=== PATIENT | male | born 1955 | race Caucasian/White ===

== ENCOUNTER → 2019-12-19 06:34 | Outpatient (CLI) | payer MEDICARE, BC, SELFPAY ==
[2019-12-11 10:03] VITALS: BMI 33.6
--- NOTE | 2019-12-19 06:35 | MRI_ITS ---
STUDY: MRI CERVICAL SPINE WITHOUT CONTRAST REASON FOR EXAM: Male, 64 years old. radiculopathy, L NECK PAIN INTO SHOULDER X 1 MONTH TECHNIQUE: Standardized fat and water weighted pulse sequences were obtained in the sagittal and axial planes. COMPARISON: 12/05/2012 FINDINGS: Cervical lordosis maintained. No significant scoliosis. No spondylolisthesis. No abnormal cord signal. Symmetric vascular flow voids. No acute soft tissue process. Normal thyroid. Normal paraspinal muscles. Tiny perineural cysts. No acute fracture line. No acute dislocation. No acute cortical destruction. Normal foramen magnum and brainstem-cervical cord junction. Normal craniovertebral junction. Normal anterior atlantoaxial articulation. Normal odontoid process. C2-3: Normal endplates. Normal disc height, signal and morphology. Normal central canal and intervertebral neural foramina. C3-4: Normal endplates. Mild disc desiccation. Normal central canal. Severe right neural foraminal narrowing. Facet joint arthrosis. C4-5: Normal endplates. Mild disc desiccation. Normal central canal. Moderate left neural foraminal narrowing. Mild right neural foraminal narrowing. Facet joint arthrosis. C5-6: Normal endplates. Mild disc desiccation. Normal central canal and intervertebral neural foramina. C6-7: Normal endplates. Disc bulge, left foraminal protrusion, without central canal narrowing. Severe left neural foraminal narrowing (secondary to protrusion). Normal right neural foramina. C7-T1: Normal endplates. Bilobed disc bulge. Normal central canal. Normal neural foramina. MRI/Spine Cervical (Routine) IMPRESSION: No abnormal cord signal Multilevel intervertebral disc disease without central canal narrowing Multilevel neural foraminal narrowing most severe at the C3-4, C4-5 and C6-7 levels Mild multilevel facet joint arthrosis Electronically Signed: Dar Jj DO at 13:30 EDT Tel , Service support ,
== END ==
PROVIDERS: PCP Student in an Organized Health Care Education/Training Program; Referring Provider Orthopaedic Surgery; Visit Provider Orthopaedic Surgery
DX: M54.9 Dorsalgia, unspecified (principal)
CPT/HCPCS: 72141

== ENCOUNTER 2020-01-09 11:51 | Inpatient (IN) | payer MEDICARE, BC, SELFPAY ==
[2019-12-23 09:36] VITALS: BMI 33.6
--- NOTE | 2019-12-23 10:57 | HP_ITS ---
Intake Intake Visit Reasons: Neck pain Accompanied by: Self Is patient in pain?: Yes Pain scale (1-10): 5 Allergies No Known Allergies Allergy (Unverified 12/11/19 10:11) [facility] Medical History (Updated 12/11/19 @ 10:06 by Suzan Benjamin) Hodgkins disease (Acute) Surgical History (Updated 12/11/19 @ 10:06 by Suzan Benjamin) History of cholecystectomy (Acute) Social History (Updated 12/23/19 @ 10:[address] 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 Alexander Byrne DO 12/23/19 0935. ABIMAEL MCCAULEY is a 64 year old M here today for review of his recent MRI. MRI was completed 12/19/2019. Abimael returns for review of his MRI scan of his cervical spine. The pain in the left arm has continued down a classic C7 dermatome. He states that when the pain is bad it is 0 on a 0-to-10 scale it is a 10 1 is good it still is 5 or 6. 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 It is not as bad when he installs gutt Examination is unchanged she has a very positive Spurling's to the left side causes pain down the left arm. He has mild weakness of the triceps on the left as compared to the right. His triceps reflex is still absent on the left side. He has no long tract signs. Clonus is absent Babinski's are downgoing. I reviewed the MRI scan the demonstrates that he has a disc herniation at C6-7 on the left side consistent with his symptoms. I discussed the surgery at length with him how it would be done what to expect etc. and answered all his questions. We will schedule him for anterior cervical fusion at C6-7 with attention to the herniation on the left side. ROS [facility] Reports system reviewed and no additional complaints, except as docu, Reports joint pain Assessment & Plan 1. Neck pain M54.2 Coding Level of Care Code Off vis,est,level 3 Diagnoses Neck pain M54.2 Time Spent (min) 12/23/19 1057 <Electronically signed by Alexander Byrne DO> Date _ Alexander Byrne DO No change in H&P
[2020-01-01 08:38] VITALS: BMI 33.6
--- NOTE | 2020-01-01 10:29 | EKG12_ITS ---
Test Reason : PRE OP Blood Pressure : / mmHG Vent. Rate : 063 BPM Atrial Rate : 063 BPM P-R Int : 156 ms QRS Dur : 090 ms QT Int : 404 ms P-R-T Axes : 051 -29 032 degrees QTc Int : 413 ms Normal sinus rhythm Normal ECG Confirmed by MARIANO OLIVAREZ, EDWINA ([id number]), online editor JEAN CLAUDE BELCHER ([id number]) on 01/02/2020 1:52:53 PM Referred By: Alexander Byrne Confirmed By:ARIEL QUINTANA MD
[2020-01-01 11:09] LABS: Absolute Lymphocyte Count 1.28 X10^3/uL (0.83-4.51); Basophil# 0.03 X10^3/uL; Basophil% 0.6 % (0-1); Eosinophil# 0.12 X10^3/uL; Eosinophils% 2.4 % (0-5); Hematocrit 44.9 % (40-54); Hemoglobin 14.8 g/dL (13.0-16.5); Lymphocyte # 1.28 X10^3/ul (4.0); Lymphocyte % 25.9 % (19-41); Mean Corpuscular Hgb 30.3 pg (27.0-32.0); Mean Platelet Vol. 11.1 fl (6.2-12.0); Monocyte# 0.49 X10^3/uL; Monocyte% 9.9 % (0-10); NRBC Flagged by Analyzer 0 % (0-5); Neutrophil # 3.02 X10^3/uL (2.7-7.7); Platelet Count 200 K/mm3 (150-450); RBC Distribution Width CV 13.7 % (11.6-14.6); RBC Distribution Width SD 46.4 fl (35.1-43.9); Red Blood Count 4.88 M/mm3 (4.6-6.2)
[2020-01-01 11:39] LABS: Anion Gap 3 (5-15); BUN 19 mg/dL (7-18); BUN/Creat Ratio 21.2 RATIO (10-20); Calcium,Total 8.9 mg/dL (8.5-10.1); Chloride 108 mmol/L (98-107); EST Glomerular Filtration Rate 90 mL/min (>60); Est Glom Filt Rate - Afr Amer 109 mL/min (>60); Glucose 92 mg/dL (74-106); Sodium Level 138 mmol/L (136-145)
[2020-01-01 12:09] LABS: HIV - WCH Non-Reactive (Nonreactive)
[2020-01-02 05:07] LABS: HEPATITIS B SURFACE AG Negative (Negative); Hepatitis A AB, Total Negative (Negative); Hepatitis A IgM Antibody Negative (Negative); Hepatitis B Core AB IgM Negative (Negative); Hepatitis B Core Ab Total Negative (Negative); Hepatitis C Ab <0.1 s/co ratio (0.0-0.9)
[2020-01-02 10:32] LABS: Hep B Surface Antibodies Non Reactive (.)
[2020-01-02 13:00] LABS: Magnesium 2.2 mg/dL (1.6-2.6)
[2020-01-09] VITALS (13 sets, daily range): BP systolic 144–177; BP diastolic 81–112; PULSE 67–86; RESP 16–18; TEMP 36.1–36.7; O2SAT 95–100; BMI 33.8
[2020-01-09] MEDS: Acetaminophen 500 MG Tablet 1000 MG PO ×2 (06:04)
[2020-01-09] MEDS: Lactated Ringers 1,000 ML 100 ML IV ×5 (06:45→18:00)
[2020-01-09 07:00] LABS: Bedside Glucose 110 mg/dL (70-110)
--- NOTE | 2020-01-09 07:30 | DISC_PTH ---
PATIENT: ABIMAEL MCCAULEY LOC: MS3 U#:[id number] AGE/SX: 64/M ROOM: IL313 RE01/09/[address]: Dr. Alexander Byrne DO : 1955 BED: 1 DIS: 01/10/2020 SPEC #: [id number] RECD: 01/09/20 12:27 STATUS: TRENT RENavid #: [id number] LAITH: 01/09/20 07:[address]: Alexander Byrne DEPT: SURGICAL PATHOLOGY RECD BY: Magdiel Zuñiga ENTERED: 01/09/20 12:37 SP TYPE: DISC OTHR DR: MD Dr. Klaus Crabtree DO Tissues: Intervertebral disc, NOS Procedures: Surgery Specimen Level III HEADER OPERATION: Anterior cervical fusion C6-7 PRE-OP DIAGNOSIS: Herniated disc C6-7 TISSUE SUBMITTED: Cervical disc C6-7 MICROSCOPIC DIAGNOSIS Cervical disc, C6-7: Fragments of fibrocartilaginous tissue with focal degenerative changes. MARGARETTE:marlee 01/10/20 MICROSCOPIC DESCRIPTION Slides are reviewed. GROSS DESCRIPTION Received in fixative is one container labeled with the patient's name and designated cervical disc C6-7. The specimen consists of multiple irregular fragments of firm, pink-vuong soft tissue that in aggregate measure 5 x 4 x 0.2 cm. The specimen is totally submitted in two cassettes. / AM:marlee 01/09/20 TC:5 CPT: 60233
[2020-01-09] MEDS: Cefazolin 2 GM in 0.9% Normal Saline 100 ML IV (08:00)
[2020-01-09] MEDS: Heparin 10,000 UNITS/10 ML Vial 10000 UNITS (08:00)
--- NOTE | 2020-01-09 08:03 | RAD_ITS ---
STUDY: X-RAY - CERVICAL SPINE REASON FOR EXAM: Male, 64 years old. Three images taken during cervical fusion. One at start, one in the middle, and one at the end c6-7 TECHNIQUE: 3 view(s) of the cervical spine were obtained. COMPARISON: None FINDINGS: Normal anterior atlantoaxial articulation. Normal odontoid process. There is anterior fusion at C6-7 in good alignment. Normal cervical lordosis. Normal vertebral bodies and endplates. The soft tissue structures are unremarkable. RAD/Spine 1 View Any Level IMPRESSION: There is anterior fusion at C6-7 in good alignment. Electronically Signed: Marty Romero, at 12:41 EDT Tel , Service support ,
[2020-01-09] MEDS: THROMBIN (RECOMBINANT) 20,000 UNIT VIAL 20000 UNIT TOPICAL (10:02)
--- NOTE | 2020-01-09 12:01 | OP.PCM_ITS ---
Report of Operation Date of Procedure: 01/09/20 Description of Surgical Findings:: This is operative summary on Myke Skaggs patient was taken to the OR where he was placed in the supine position on the operating table was then placed under general endotracheal anesthesia a bolster was placed between the shoulder blades Suarez was inserted. Neuro monitoring instrumentation and control technician then hooked the patient up to his system. A preoperative x-ray was taken with a needle marker taped to the side of the neck to know her to start the incision. I marked the midline of the neck with a small laceration using the end of an 18-gauge needle which would be the starting point for his incision. The neck and the right iliac crest was th en prepped and draped in standard fashion. Then made a transverse incision in line with longer's lines starting in the midline and moving to the right sternocleidomastoid muscle. Cutaneous tissues were incised the length of the skin incision. I then undermined the subcutaneous tissues off of the platysma in both cephalad and caudad direction. The platysma was then split longitudinally down the center oozing blunt cautery and mechanical cutting. Was done I then had to expose the fascial planes first we exploited the precervical fascia in an up-and-down fashion then the pretracheal fascia in this fashion I was able to retract the midline structures that is a trachea and esophagus to the left the carotid sheath to the right away down to the precervical fascia. The cervical fascia was then opened over the disc space thought to be C6-7. The anterior disc space was exposed a spinal needle was put in place and an intraoperative x-ray was taken to confirm that we were indeed at the 6 C6-7 level. This I then cauterized the longus coli muscles on either side off of its medial edges and elevated them gently off of the disc space and the vertebra on each side retractors were then put in place to hold it then cauterized the ostium off of the bottom of C6 and the top of C7. The self-retaining retractors were then in place the coli muscles giving us reasonable exposure. Then cut the anterior annulus with a 15 blade removed it with pituitary rongeurs. We further removed more disc from within the disc space with pituitary rongeurs all the way back to the posterior part of the interspace. Vertebral body distractor was then put on the right side to give open the space. A candi bur 4 mm in diameter I was able to burn down the uncinate process with the bur. We slowly went deeper followed by instillation of saline in between her ring. Opened up the space and the free fragment of disc was then removed using a micropituitary rongeurs. Nerve hook was also used for the same purpose. This opened the foramina this was checked with a large nerve hook was found to be completely free. Used the micro-curettes to remove the cartilage off both endplates once this was done thorough irrigation was carried out as it was every 10 to 15 minutes in the course of the case. Started with our trials at first we started with a 6 mm trial which was too loose we used a six 7 mm trial and finally an 8 mm trial was found to be a good fit for this space. Use the larger of the 2 sizes were 16-1/2 x 14-1/2. And 8 mm in height. In between this we had already prepped the right crest I then made a tiny incision directly over the anterior iliac spine used a Jamshidi needle down into between the tables 60 cc of bone marrow aspirate were obtained. Handed off to the instrumentation and control technician in the room for separation and concentration of the patient's stem cells. C disc space was completely prepared then used a 8 mm broach repeatedly to broach the endplates and make them bleed thorough irrigation was again carried out the implant was opened it was then filled with 1G allograft bone that was processed to act as a sponge once it was filled it was soaked in the patient's own stem cells was then tamped into place with anesthesia pulling on the neck. Was found to be an excellent fit and used a 24 mm plate I did have to bend it slightly once centered we then put a locking pin and on 1 of them I then placed using awl to punch a hole in the next 1 followed by the insertion of a 14 mm screw through 4.0 diameter screws then done at all 4 points after removing the pin mentioned and the screw was also put there. This went through the plate into the locking mechanism. Amnionic membrane was then placed over the plate to prevent adhesions to the esophagus in the future. A 1/4 inch Tyrone drain was left in place I closed the platysma running fashion with 5-0 Vicryl followed by closure of the subcutaneous tissues with 5-0 Vicryl interrupted fashion no need for outside stitches of these came together well. Sterile dressings were then applied patient was then recovered in the OR to his hospital bed and taken to recovery in satisfactory condition.
--- NOTE | 2020-01-09 14:49 | PCM.PROGNOTE ---
Subjective: Patient seen and examined. Resting comfortably in bed. Status post anterior cervical fusion of C6-C7. Reports history of Hodgkin's lymphoma 30 years ago. Denies other medical history. - Physical Exam Vitals/I&O's: Vital Signs Temp Pulse Resp BP Pulse Ox 97.4 F L 79 16 161/84 H 98 01/09/20 14:00 01/09/20 14:00 01/09/20 14:00 01/09/20 14:00 01/09/20 14:00 Oxygen Flow Rate (L/min) 6 Oxygen Delivery Method Room Air Weight: 249 lb 9.012 oz Body Mass Index (BMI) 33.8 Intake and Output for Last 24 Hours 01/07/20 01/08/20 01/09/20 23:59 23:59 23:59 Intake Total 2462 / 2462 Output Total 750 / 750 Balance 1712 / 1712 General: Alert, Oriented x3, Cooperative HEENT: Atraumatic, PERRLA, EOMI, Normocephalic, - - Neck brace in place Neck: Supple, No JVD, Negative Carotid Bruits Lungs: Clear to auscultation, Normal air movement Cardiovascular: Regular rate, No murmurs Abdomen: Bowel Sounds Present, Soft, Non Tender Extremities: No edema, Capillary Refill Less than 3 Seconds Skin: No rashes, No breakdown Musculoskeletal: No Tenderness to Palpation of Joints or Extremities Neurological: Cranial nerves II-XII grossly intact, Neuro grossly intact Psych/Mental Status: Normal Affect, Appropriate Laboratory Results 01/09/20 06:21: POC Glucose 110 Current Medications Famotidine (Pepcid) 20 mg PO BID [facility] Lactated Ringer's () 1,000 mls @ 100 mls/hr IV .Q10H [facility] Last Admin: 01/09/20 14:16 Dose: 100 mls/hr Documented by: Cefazolin Sodium () 1 gm in 50 mls @ 100 mls/hr IV Q8H [facility] Sodium Chloride () 250 mls @ 15 mls/hr IV .[id number] PRN PRN Reason: Saline Flush Sodium Chloride () 250 mls @ 15 mls/hr IV .[id number] PRN PRN Reason: Additional IVPB Infusion Insulin Human Lispro (Humalog Aneudy (Bkc)) 1 - 6 unit SC Q4H PRN PRN; Protocol PRN Reason: BG>/= 180, SEE PROTOCOL Morphine Sulfate () 2 - 4 mg IV Q2H PRN PRN PRN Reason: Pain Score 6-10 Morphine Sulfate () 2 - 4 mg IV Q2H PRN PRN PRN Reason: Pain Score 6-10 Ondansetron HCl (Zofran) 4 mg IV Q8H PRN PRN PRN Reason: NAUSEA Sodium Chloride () 5 - 15 ml IV UD PRN PRN Reason: SALINE FLUSH Sodium Chloride () 10 - 40 ml IV UD PRN PRN Reason: SALINE FLUSH Medical Necessity - Tobacco Use Smoking Status: Never smoker Tobacco Use: Non-smoker Assessment/Plan All Active Problems (Last Updated 12/11/19 @ 10:06 by Suzan Benjamin) Hodgkins disease (Acute) 1. Elevated blood pressure, no history of hypertension-states blood pressure is typically controlled. Possibly elevated secondary to pain. PRN hydralazine for systolic blood pressure greater than 160. If blood pressure remains above goal despite adequate pain control, consider addition of oral agent. 2. History of Hodgkin's lymphoma-30 years ago in remission. Continue outpatient follow-up. 3. Osteoarthritis/DJD, chronic neck pain-postop day #0 C6-7 fusion. PRN pain regimen. Management per Dr. Byrne. DVT prophylaxis-SCDs This patient was seen by ALTON Gould under the supervision of Dr. Silva.
[2020-01-09] MEDS: Cefazolin 1 GM/50 ML BAG IV ×2 (15:52→22:38)
--- NOTE | 2020-01-09 22:30 | NURSING ---
Per Hilario dc order, removed hilario, urine was clear yellow with good output. Procedure well tolerated.
[2020-01-09] MEDS: Famotidine 20 MG Tablet PO (22:37)
[2020-01-10 03:00] VITALS: BP 150/93; PULSE 75; RESP 16; TEMP 36.9; O2SAT 95
[2020-01-10] MEDS: Lactated Ringers 1,000 ML 100 ML IV (03:14)
[2020-01-10 06:00] VITALS: BP 153/90; PULSE 77; RESP 16; TEMP 36.8; O2SAT 95
[2020-01-10 08:00] VITALS: PULSE 65
[2020-01-10 08:54] VITALS: BP 162/89; PULSE 87; RESP 18; TEMP 37.1; O2SAT 96
[2020-01-10 10:22] LABS: Absolute Lymphocyte Count 1.32 X10^3/uL (0.83-4.51); Absolute Neutrophil Count 7.4 X10^3/uL (2.0-7.7); Basophil# 0.02 X10^3/uL; Basophil% 0.2 % (0-1); Eosinophil# 0.04 X10^3/uL; Eosinophils% 0.4 % (0-5); Hematocrit 42.9 % (40-54); Lymphocyte # 1.32 X10^3/ul (4.0); Lymphocyte % 13.6 % (19-41); Mean Corp Hgb Conc 32.6 g/dL (32-36); Mean Corpuscular Hgb 29.9 pg (27.0-32.0); Mean Corpuscular Volume 91.5 fL (80-94); Mean Platelet Vol. 11.2 fl (6.2-12.0); Monocyte# 0.88 X10^3/uL; NRBC Flagged by Analyzer 0 % (0-5); Neutrophil # 7.44 X10^3/uL (2.7-7.7); Neutrophil % 76.5 % (47-70); Platelet Count 196 K/mm3 (150-450); RBC Distribution Width CV 13.6 % (11.6-14.6); RBC Distribution Width SD 46.1 fl (35.1-43.9); Red Blood Count 4.69 M/mm3 (4.6-6.2); White Blood Count 9.7 K/mm3 (4.4-11.0)
[2020-01-10 10:38] LABS: Anion Gap 6 (5-15); BUN 11 mg/dL (7-18); BUN/Creat Ratio 11.2 RATIO (10-20); Calcium,Total 8.7 mg/dL (8.5-10.1); Chloride 108 mmol/L (98-107); Creatinine, Serum 0.98 mg/dL (0.70-1.30); EST Glomerular Filtration Rate 81 mL/min (>60); Est Glom Filt Rate - Afr Amer 98 mL/min (>60); Estimated Creatinine Clearance 82.48 ml/min; Glucose 108 mg/dL (74-106); Sodium Level 141 mmol/L (136-145)
--- NOTE | 2020-01-10 10:41 | DCINST_ITS ---
Discharge Diet: No Restrictions Discharge Activity: May Not Drive Return to work on:: 01/27/20 May shower in (days): 4 Weight Bearing Status: Weight bearing as tolerated Additional Instructions: Patient has an appointment with me next Monday Allergies/Adverse Reactions: Allergies No Known Allergies Allergy (Unverified 12/26/19 13:45) Medications to take at Discharge ascorbate calcium (vitamin C) 500 mg tablet 500 mg PO DAILY 12/11/19 lactobacillus combination no.8 3 billion cell capsule 3,000 mmu cells PO DAILY 12/11/19 Primary Care Physician: Klaus Puentes DO [Primary Care Provider] - Test Results: Test results from this visit will be discussed in further detail at your follow- up appointment, if applicable.
--- NOTE | 2020-01-10 11:03 | PN_ITS ---
Reason for Visit: Patient had cervical fusion of C6-7 from anterior approach. Denies numbness tingling or weakness of upper extremity. Patient had neck pain with radiation to left arm along the C7 dermatome for long time and was getting worse with prolonged use of the left upper extremity. Currently denies any pain in the upper extremity or lower extremity. Physical exam General: Alert, Oriented x3, Cooperative HEENT: Atraumatic, PERRLA, EOMI, Normocephalic Oral: No Gingival or Mucosal Lesions/ Ulcerations Neck: Surgical dressing over an anterior aspect of neck is dry. No hematoma. Supple, No JVD, Negative Carotid Bruits Lungs: Air entry diminished in bilateral lung bases. No crepitation/rhonchi Cardiovascular: Regular rate, Regular Rhythm, Normal S1, Normal S2, No murmurs Abdomen: Bowel Sounds Present, Soft, Non Tender, Non-Distended : No renal angle tenderness. No suprapubic tenderness. No new urinary incontinence. Extremities: No edema, Capillary Refill Less than 3 Seconds Skin: No rashes, No breakdown Musculoskeletal: No Tenderness to Palpation of Joints or Extremities. Muscle strength 5/5 at major joints of upper and lower extremities. Neurological: Cranial nerves II-XII grossly intact, Deep Tendon Reflexes 2+/4 and Symmetrical, Neuro grossly intact. Sensation equal and symmetrical over both upper extremities. Psych/Mental Status: Normal Affect, Appropriate. Vitals/I&O's: Vital Signs Temp Pulse Resp BP Pulse Ox 98.7 F 87 18 162/89 H 96 01/10/20 08:54 01/10/20 08:54 01/10/20 08:54 01/10/20 08:54 01/10/20 08:54 Oxygen Flow Rate (L/min) 6 Oxygen Delivery Method Room Air Weight: 249 lb 9.012 oz Body Mass Index (BMI) 33.8 Intake and Output for Last 24 Hours 01/08/20 01/09/20 01/10/20 23:59 23:59 23:59 Intake Total 3240.33 / 3640.33 1323.33 / 1323.33 Output Total 1250 / 3000 3200 / 3200 Balance 1990.33 / 640.33 -1876.67 / -1876.67 Laboratory Results 01/10/20 09:34: WBC 9.7, RBC 4.69, Hgb 14.0, Hct 42.9, MCV 91.5, MCH 29.9, MCHC 32.6, RDW Std Deviation 46.1 H, RDW Coeff of Carmen 13.6, Plt Count 196, MPV 11.2, Immature Gran % (Auto) 0.300, Neut % (Auto) 76.5 H, Lymph % (Auto) 13.6 L, Angelina % (Auto) 9.0, Eos % (Auto) 0.4, Baso % (Auto) 0.2, Absolute Neuts (auto) 7.4, Absolute Lymphs (auto) 1.32, Nucleated RBC % 0 01/10/20 09:34: Sodium 141, Potassium 4.0, Chloride 108 H, Carbon Dioxide 27.0, Anion Gap 6, BUN 11, Creatinine 0.98, Estim Creat Clear Calc 82.48, Est GFR (MDRD) Af Amer 98, Est GFR (MDRD) Non-Af 81, BUN/Creatinine Ratio 11.2, Glucose 108 H, Calcium 8.7 Current Medications Famotidine (Pepcid) 20 mg PO BID [facility] Last Admin: 01/10/20 08:53 Dose: Not Given Documented by: Hydralazine HCl (Apresoline Iv) 10 mg IV Q6H PRN PRN PRN Reason: BLOOD PRESSURE Lactated Ringer's () 1,000 mls @ 100 mls/hr IV .Q10H [facility] Last Admin: 01/10/20 03:14 Dose: 100 mls/hr Documented by: Sodium Chloride () 250 mls @ 15 mls/hr IV .[id number] PRN PRN Reason: Saline Flush Sodium Chloride () 250 mls @ 15 mls/hr IV .[id number] PRN PRN Reason: Additional IVPB Infusion Insulin Human Lispro (Humalog Kwikpen (Bkc)) 1 - 6 unit SC Q4H PRN PRN; Protocol PRN Reason: BG>/= 180, SEE PROTOCOL Lisinopril (Zestril) 10 mg PO DAILY [facility] Last Admin: 01/10/20 08:53 Dose: Not Given Documented by: Morphine Sulfate () 2 - 4 mg IV Q2H PRN PRN PRN Reason: Pain Score 6-10 Morphine Sulfate () 2 - 4 mg IV Q2H PRN PRN PRN Reason: Pain Score 6-10 Ondansetron HCl (Zofran) 4 mg IV Q8H PRN PRN PRN Reason: NAUSEA Sodium Chloride () 5 - 15 ml IV UD PRN PRN Reason: SALINE FLUSH Sodium Chloride () 10 - 40 ml IV UD PRN PRN Reason: SALINE FLUSH STROKE Vital Signs/Narrative: Vital Signs Temp Pulse Resp BP Pulse Ox 01/10/20 08:54 98.7 F 87 18 162/89 H 96 01/10/20 08:00 64 Medical Necessity - Tobacco Use Smoking Status: Never smoker Tobacco Use: Non-smoker Assessment/Plan All Active Problems (Last Updated 12/11/19 @ 10:06 by Suzan Benjamin) Hodgkins disease (Acute) This 64-year-old gentleman with history of cervical degenerative disc disease at C6-7 level was admitted electively for cervical spine for fusion at C6-7 level. 1. Undiagnosed hypertension: Patient blood pressure is still elevated 162/89. Patient was ordered lisinopril 10 mg daily but he refused to take it. He said he will try to control blood pressure by diet and exercise. 2. History of Hodgkin's lymphoma-30 years ago in remission. Continue outpatient follow-up. 3. Cervical spine disc degeneration C6-7 level status post fusion done with degenerative joint disease of cervical spine: Surgical dressing is dry. Patient is getting discharged by Dr. Byrne today. DVT prophylaxis-SCDs Inpatient E&M: 83817 Subs Hosp L2
== END 2020-01-10 11:05 | disposition home or self-care (01) | DRG 473 ==
LOC: SDC 13:03 → MS3 13:03
PROVIDERS: Anesthesiology; Internal Medicine; Admitting Provider Orthopaedic Surgery; PCP Student in an Organized Health Care Education/Training Program; Referring Provider Orthopaedic Surgery; Visit Provider Orthopaedic Surgery
PROC: 0RG10A0 Fusion of Cervical Vertebral Joint with Interbody Fusion Device, Anterior Approach, Anterior Column, Open Approach (ICD-10-PCS; CPT 22551; principal; 2020-01-09 07:00)
DX: M50.323 Other cervical disc degeneration at C6-C7 level (principal); M50.223 Other cervical disc displacement at C6-C7 level; Z11.59 Encounter for screening for other viral diseases; I10 Essential (primary) hypertension; M19.90 Unspecified osteoarthritis, unspecified site; L40.9 Psoriasis, unspecified; G25.81 Restless legs syndrome; Z85.71 Personal history of Hodgkin lymphoma; Z79.899 Other long term (current) drug therapy
CPT/HCPCS: 36415; 72020; 80048; 82962; 83735; 85025; 86703; 86704; 86705; 86706; 86708; 86709; 86803; 87081; 87340; 87635; 88304; 93005; 99251; C9803; J7120; G0463; J2405; U0003

== ENCOUNTER 2022-08-21 22:21 | Emergency (ER) | payer MEDICARE, BC, SELFPAY ==
[2022-08-21 22:22] VITALS: BP 133/84; PULSE 107; RESP 16; TEMP 36.8; O2SAT 98; BMI 35.9
[2022-08-21 22:27] VITALS: O2SAT 96
--- NOTE | 2022-08-21 22:54 | EKG12_ITS ---
Test Reason : DYSRHYTHMIA Blood Pressure : / mmHG Vent. Rate : 097 BPM Atrial Rate : 097 BPM P-R Int : 136 ms QRS Dur : 124 ms QT Int : 374 ms P-R-T Axes : 040 -48 -14 degrees QTc Int : 474 ms Normal sinus rhythm Right bundle branch block Left anterior fascicular block Bifascicular block Abnormal ECG Confirmed by BLANE OLIVAREZ, RODOLFO ([id number]), editor school photograph GERMAN PERRY ([id number]) on 08/22/2022 10:23:54 AM Referred By: PL Confirmed By:RODOLFO ARGUELLES MD
--- NOTE | 2022-08-21 22:54 | CT_ITS ---
INDICATION: pain, bleeding EXAMINATION: CT ABDOMEN AND PELVIS WITH CONTRAST - CT Abdomen And Pelvis W/ Contrast Injection TECHNIQUE: Helically acquired images were obtained of the abdomen and pelvis following IV contrast. A radiation dose optimization technique was used for this scan. IV Contrast dosage and agent: 100 mL [id number] Oral contrast: None. COMPARISON: None. FINDINGS: LOWER CHEST: Lung bases are clear. No cardiomegaly or pericardial effusion. LIVER: Homogeneous. No focal mass. GALLBLADDER AND BILIARY TREE: Absent gallbladder. No intra- or extrahepatic biliary ductal dilation. PANCREAS: No focal cystic or solid mass. SPLEEN: Normal size without focal cystic or solid mass. ADRENAL GLANDS: No nodules. KIDNEYS AND URETERS: Mild bilateral senescent perinephric stranding. Normal renal size and position. No hydronephrosis. Normal cortical enhancement. Unremarkable ureters and bladder. PERITONEUM: No ascites or free air. No other fluid collection. BOWEL: No acute gastric finding. No small bowel distention or focal wall thickening. Normal appendix. Distal colonic diverticulosis with minimal nonspecific adjacent inflammatory stranding along the mid descending colon, axial image 71 and coronal image 62. Large colonic stool burden. LYMPH NODES: No enlarged mesenteric or retroperitoneal lymph nodes. VESSELS: Aorta is non-dilated. ABDOMINAL WALL: No discrete abdominal or pelvic wall hernia. BONES: No lytic or blastic abnormality. Moderate right and mild left hip osteoarthritis. CT/Abdomen/Pelvis W IV Cont ONLY IMPRESSION: Large stool burden as can be seen with constipation. Colonic diverticulosis with minimal fat stranding at the mid descending colon which is nonspecific but could represent mild or early uncomplicated diverticulitis in the appropriate setting. Correlate with location of pain. No evidence of active intraluminal contrast to define location of bleeding on this single phase exam. Electronically Signed: Hardeep Smith MD at 0:45 EDT ,
--- NOTE | 2022-08-21 22:56 | EDS_ITS ---
HPI History of Present Illness Chief Complaint: Shortness of Breath Informant: patient and spouse/S.O. Narrative Narrative: Patient presents with generalized weakness and dyspnea on exertion. Patient states that he is retired recently. But for the last year he has been out of energy. 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 No chest pain. He does have exertional dyspnea that is gotten notably worse in the last about 4 days. He is also noticed some black her stools in the last 4 days. He thought that was secondary to a cleanse that he did that included a large number of blueberries. Per his he was having a lot of reflux gastritis type symptoms but he states that has gotten a little better. He used to use baking soda to help with this. He has never had diagnosis of GERD. He is on no meds for anything. He has not lost weight in fact since retiring he put on some weight. No history of colon cancer. No history of having prior colonoscopy. He states sometimes his stomach just does not seem happy after eating but he is not having actual pain. [facility] Medical History (Updated 08/22/22 @ 01:[address] Sushant Osuna MD) Chronic neck pain DJD (degenerative joint disease) History of Hodgkin's lymphoma Obesity Home Medications ascorbate calcium (vitamin C) 500 mg tablet 500 mg PO DAILY 12/11/19 [History Last Taken Unknown] lactobacillus combination no.8 3 billion cell capsule (Adult Probiotic) 3,000 mmu cells PO DAILY 12/11/19 [History Last Taken Unknown] esomeprazole magnesium 20 mg capsule,delayed release (Nexium) 20 mg PO DAILY #60 caps 08/22/22 [Rx Last Taken Unknown] ferrous sulfate 325 mg (65 mg iron) tablet 325 mg PO BID #60 tabs 08/22/22 [Rx Last Taken Unknown] folic acid-vit B6-vit B12 2.5 mg-25 mg-1 mg tablet (WesTab One) 1 tab PO DAILY #30 tabs 08/22/22 [Rx Last Taken Unknown] Allergy/AdvReac Type Severity Reaction Status Date / Time No Known Allergies Allergy Verified 08/21/22 22:24 Family History Mother Cancer Brother Cancer Leukemia Father Hx of heart bypass surgery Surgical History (Updated 08/22/22 @ 00:[address] 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 Some specific details below. Constitutional: No recent fevers or chills. He does have generalized malaise but that is not acute see history of present illness. EYE: No visual complaints or pain. ENT: No difficulty swallowing. No swelling. No pain. Occasional GERD symptoms but that has gotten better recently. CV: No chest pain or palpitations. No pressure. Even when he gets dyspnea on exertion he does not have pain or pressure. Respiratory: No dyspnea while sitting still but he does on exertion as in history of present illness.. No hemoptysis. No difficulty taking breaths. No wheezing. GI: Please see history of present illness. : No frequency dysuria or hematuria. Musculoskeletal: No recent trauma. No pains. Skin: No rash. Nondiaphoretic. No abnormal bruising. Neuro: No weakness or numbness. Endocrine: No polyuria or polydipsia. No history of diabetes. EXAM Physical Exam Narrative Exam Narrative: CONSTITUTIONAL: Patient is nontoxic in appearance but he does look a bit pale to me. The patient looks comfortable. HEENT: No notable trauma. Mucous membranes moist. No sinus tenderness. No indication of pain with swallowing. EYES: No conjunctival injection. No icterus. He does have pale conjunctive a. CARDIOVASCULAR: Regular rate. Regular rhythm. No notable murmur. No JVD. RESPIRATORY: No respiratory distress. Breathing is unlabored. No wheezes. No rhonchi. No rales. No pain with a deep breath. Overall his lungs sound clear and his saturations are normal at 98% on room air. GASTROINTESTINAL: Not distended. Bowel sounds are normal. No tenderness. No guarding. No rebound. No palpable mass. No bruit. GENITOURINARY: No tenderness over the bladder. No CVA tenderness. MUSCULOSKELETAL: Atraumatic. No peripheral edema. No cord. No tenderness along the deep venous system. No asymmetry. NEUROLOGICAL: Patient is alert and appropriate. No focal deficit noted. SKIN: No noted rashes. No diaphoresis. PSYCHIATRIC: Patient is calm. Mood is appropriate. Const Vital Signs: 08/21/22 22:22 08/21/22 22:27 08/22/22 01:05 Temperature 98.2 F Temperature Source Temporal Pulse Rate 107 H 79 Respiratory Rate 16 15 Respiratory Effort Short of Breath Respiratory Depth Deep Respiratory Pattern Tachypnea Blood Pressure 133/84 H 115/60 Blood Pressure Mean 100 78 Pulse Ox 98 98 Oxygen Delivery Method Room Air Room Air Room Air MDM MDM MDM Narrative Medical decision making narrative: Patient CBC shows anemia at 9.0 which was somewhat expected by exam. He also has low MCHC. Platelets are normal. Electrolytes show no marked abnormalities. He does have a slight high BUN to creatinine ratio. Liver function test showed no marked abnormalities. Patient's Hemoccult was negative. He states the only time he has seen dark stools is since he started eating a lot of blueberries. My independent interpretation of the CT of his abdomen shows no sign of a lesion or obstruction. He does have multiple diverticula. Final reading noted minimal stranding but clinical correlation required. Patient has no pain in his abdomen. He has no tenderness. He has no diarrhea. I do not think he needs to be treated for diverticulitis. I think this patient has had some gastritis symptoms off and on for a while. He has had exertional dyspnea a little worse recently but he has been having symptoms like this for over a year. I think he likely has some gastritis or possible peptic ulcer disease and has had intermittent bleeding. I will start him on iron supplementation. But with his high MCV we will also start folate and B12. In either case this will need follow-up with primary physician. I also recommend he follow-up with gastroenterology as he may need endoscopy and he has never had a colonoscopy. We discussed reasons to return. We also discussed that his symptoms are not going to rapidly resolved. Since he is not actively bleeding, not on blood thinners, has long-term symptoms, and his hemoglobin is above 7, I do not think he needs an acute transfusion. Lab Data Attestation: I reviewed the patient's lab results. Labs: Laboratory Results - last 24 hr 08/21/22 08/21/2223 23:10 23:10 23:17 WBC 7.8 RBC 2.97 L Hgb 9.0 L Hct 29.0 L MCV 97.6 H MCH 30.3 MCHC 31.0 L RDW Std Deviation 49.3 H RDW Coeff of Carmen 13.9 Plt Count 161 MPV 12.6 H Immature Gran % (Auto) 0.600 Neut % (Auto) 79.8 H Lymph % (Auto) 10.7 L [place] % (Auto) 7.0 Eos % (Auto) 1.3 Baso % (Auto) 0.6 Absolute Neuts (auto) 6.2 Absolute Lymphs (auto) 0.83 Nucleated RBC % 0 Platelet Estimate ADEQUATE Sodium 139 Potassium 4.0 Chloride 108 H Carbon Dioxide 23.0 Anion Gap 8 BUN 35 H Creatinine 0.93 Estim Creat Clear Calc 83.44 Est GFR (MDRD) Af Amer 103 Est GFR (MDRD) Non-Af 85 BUN/Creatinine Ratio 37.5 H Glucose 165 H Calcium 8.6 Total Bilirubin 0.20 AST 14 L ALT 31 Alkaline Phosphatase 75 Troponin I High Sens 5 Total Protein 5.9 L Albumin 3.1 L Globulin 2.8 Albumin/Globulin Ratio 1.1 Blood Type O NEGATIVE Antibody Screen NEGATIVE Radiography Diagnostic Testing: Clinical Impression(s) from Imaging Studies Abdomen/Pelvis CT 08/21/22 22:54 IMPRESSION: Large stool burden as can be seen with constipation. Colonic diverticulosis with minimal fat stranding at the mid descending colon which is nonspecific but could represent mild or early uncomplicated diverticulitis in the appropriate setting. Correlate with location of pain. No evidence of active intraluminal contrast to define location of bleeding on this single phase exam. Electronically Signed: Hardeep Smith MD at 0:45 EDT , EKG Initial EKG: Comments: My independent interpretation of this patient's EKG done for dyspnea on exertion shows normal sinus rhythm with overall rate of 97. There is right bundle branch block. There is no ventricular ectopy. Nonspecific ST and T wave changes consistent with his right bundle branch block but no evidence of acute infarct or ischemia. [place] interval was normal. QRS duration and QTc are a bit long. Discharge Plan Triage Chief Complaint: Shortness of Breath ED Provider: Sushant Osuna Dx/Rx/DC Orders Clinical Impression: Anemia, Exertional dyspnea, Generalized weakness Instructions: Anemia Prescriptions: New esomeprazole magnesium [Nexium] 20 mg capsule,delayed release(DR/EC) 20 mg PO DAILY Qty: 60 0RF ferrous sulfate 325 mg (65 mg iron) tablet 325 mg PO BID Qty: 60 0RF Rx Instructions: Start once a day and then increase to twice a day after about 1 to 2 weeks. WesTab One 2.5-25-1 mg tablet 1 tab PO DAILY Qty: 30 0RF No Action ascorbate calcium (vitamin C) 500 mg tablet 500 mg PO DAILY Adult Probiotic 3 billion cell capsule 3,000 mmu cells PO DAILY Rx Instructions: administer with a meal Primary Care Provider: Care Physician,No Primary Referrals: Klaus Puentes, DO [Non-Staff] - As soon as possible Kal Newman, DO [Med Staff - Active Staff] - As soon as possible Disposition Disposition: Home, Self Care
[2022-08-21 23:40] LABS: ALB/GLOB Ratio 1.1 RATIO (0.9-2.4); AST(SGOT) 14 U/L (15-37); Alanine Aminotransfer ALT/SGPT 31 U/L (16-61); Albumin, Serum 3.1 g/dL (3.2-5.0); Alkaline Phosphatase 75 U/L (45-117); Anion Gap 8 (5-15); BUN 35 mg/dL (7-18); BUN/Creat Ratio 37.5 RATIO (10-20); Calcium,Total 8.6 mg/dL (8.5-10.1); Chloride 108 mmol/L (98-107); Creatinine, Serum 0.93 mg/dL (0.70-1.30); EST Glomerular Filtration Rate 85 mL/min (>60); Est Glom Filt Rate - Afr Amer 103 mL/min (>60); Estimated Creatinine Clearance 83.44 ml/min; Globulin 2.8 g/dL (2.2-4.2); Glucose 165 mg/dL (74-106); Protein, Total 5.9 g/dL (6.4-8.2); Sodium Level 139 mmol/L (136-145); Troponin-I HS 5 pg/mL (3.0-78.0)
[2022-08-21 23:53] LABS: Absolute Lymphocyte Count 0.83 X10^3/uL (0.83-4.51); Absolute Neutrophil Count 6.2 X10^3/uL (2.0-7.7); Basophil# 0.05 X10^3/uL; Basophil% 0.6 % (0-1); Eosinophils% 1.3 % (0-5); Lymphocyte # 0.83 X10^3/ul (0.83-4.51); Lymphocyte % 10.7 % (19-41); Mean Corpuscular Hgb 30.3 pg (27.0-32.0); Mean Corpuscular Volume 97.6 fL (80-94); Mean Platelet Vol. 12.6 fl (6.2-12.0); Monocyte# 0.54 X10^3/uL; NRBC Flagged by Analyzer 0 % (0-5); Neutrophil # 6.18 X10^3/uL (2.7-7.7); Neutrophil % 79.8 % (47-70); POSITIVE COUNT YES; RBC Distribution Width CV 13.9 % (11.6-14.6); RBC Distribution Width SD 49.3 fl (35.1-43.9); Red Blood Count 2.97 M/mm3 (4.6-6.2); White Blood Count 7.8 K/mm3 (4.4-11.0)
[2022-08-21 23:59] LABS: Differential Indicated SCAN CRITERIA MET
[2022-08-22 00:53] LABS: Platelet Count 161 K/mm3 (150-450); Platelet Estimate ADEQUATE (ADEQ)
[2022-08-22 01:05] VITALS: BP 115/60; PULSE 79; RESP 15; O2SAT 98
[2022-08-22 01:51] VITALS: BP 119/73; PULSE 79; RESP 17; O2SAT 97
== END 2022-08-22 01:56 | disposition home or self-care (01) ==
PROVIDERS: Emergency Provider Emergency Medicine; Visit Provider Emergency Medicine
DX: R06.00 Dyspnea, unspecified (principal); R53.1 Weakness; D64.9 Anemia, unspecified; Z90.49 Acquired absence of other specified parts of digestive tract
CPT/HCPCS: 36415; 74177; 80053; 82274; 84484; 85025; 86850; 86900; 86901; 93005; 99283; Q9967; A4216

== ENCOUNTER 2022-08-26 20:51 | Emergency (ER) | payer MEDICARE, BC, SELFPAY ==
[2022-08-26 20:51] VITALS: BP 136/78; PULSE 79; RESP 16; TEMP 36.6; O2SAT 98; BMI 37.2
--- NOTE | 2022-08-26 21:58 | EKG12_ITS ---
Test Reason : SOB Blood Pressure : / mmHG Vent. Rate : 072 BPM Atrial Rate : 072 BPM P-R Int : 150 ms QRS Dur : 132 ms QT Int : 412 ms P-R-T Axes : 040 -32 -14 degrees QTc Int : 451 ms Normal sinus rhythm Left axis deviation Right bundle branch block Minimal voltage criteria for LVH, may be normal variant ( R in aVL ) Abnormal ECG Confirmed by BLANE OLIVAREZ, RODOLFO ([id number]), news editor GERMAN PERRY ([id number]) on 08/30/2022 10:16:38 AM Referred By: Confirmed By:RODOLFO ARGUELLES MD
[2022-08-26 22:20] LABS: Absolute Lymphocyte Count 1.01 X10^3/uL (0.83-4.51); Absolute Neutrophil Count 3.7 X10^3/uL (2.0-7.7); Basophil# 0.03 X10^3/uL; Basophil% 0.6 % (0-1); Eosinophil# 0.18 X10^3/uL; Eosinophils% 3.3 % (0-5); Hematocrit 25.6 % (40-54); Lymphocyte # 1.01 X10^3/ul (0.83-4.51); Lymphocyte % 18.7 % (19-41); Mean Corp Hgb Conc 31.3 g/dL (32-36); Mean Corpuscular Hgb 30.8 pg (27.0-32.0); Mean Corpuscular Volume 98.5 fL (80-94); Mean Platelet Vol. 10.8 fl (6.2-12.0); Monocyte# 0.47 X10^3/uL; Monocyte% 8.7 % (0-10); NRBC Flagged by Analyzer 0 % (0-5); Neutrophil # 3.65 X10^3/uL (2.7-7.7); Neutrophil % 67.6 % (47-70); Platelet Count 229 K/mm3 (150-450); RBC Distribution Width CV 17.4 % (11.6-14.6); RBC Distribution Width SD 54.2 fl (35.1-43.9); White Blood Count 5.4 K/mm3 (4.4-11.0)
--- NOTE | 2022-08-26 22:20 | RAD_ITS ---
INDICATION: Chest pain. EXAMINATION/TECHNIQUE: X-RAY - XR Chest 2 Views COMPARISON: Chest x-ray July 26, 2012, report only. FINDINGS: LINES/DEVICES: None. LUNGS: Mild eventration of the right hemidiaphragm. No focal airspace consolidation or pleural effusion. No pneumothorax. MEDIASTINUM AND CARDIOVASCULAR STRUCTURES: Cardiac silhouette not enlarged. Aortic calcification and tortuosity. Pulmonary vascularity within normal limits. BONES AND SOFT TISSUES: Degenerative changes of the thoracic spine. Lower cervical ACDF hardware. RAD/Chest PA and Lateral IMPRESSION: No acute cardiopulmonary disease. Electronically Signed: Gianluca Dias MD at 22:47 EDT ,
[2022-08-26 22:41] LABS: Anion Gap 8 (5-15); BUN 16 mg/dL (7-18); BUN/Creat Ratio 16.1 RATIO (10-20); Calcium,Total 8.4 mg/dL (8.5-10.1); Chloride 108 mmol/L (98-107); EST Glomerular Filtration Rate 79 mL/min (>60); Est Glom Filt Rate - Afr Amer 96 mL/min (>60); Glucose 108 mg/dL (74-106); Potassium 3.8 mmol/L (3.5-5.1); Sodium Level 141 mmol/L (136-145); Troponin-I HS (w/2H Reflex) 10 pg/mL (3.0-78.0)
[2022-08-27 00:17] LABS: Reflex Troponin-HS? (from REC) Y
[2022-08-27 00:44] LABS: Troponin-I HS 11 pg/mL (3.0-78.0)
--- NOTE | 2022-08-27 00:44 | EDS_ITS ---
HPI History of Present Illness Chief Complaint: Shortness of Breath Informant: patient Narrative Narrative: Patient presenting with chest pressure and shortness of breath, does not lateralize and substernal nonradiating, nonexertional seem to start at rest. Started several hours ago. He has been feeling very tired and malaised and having dyspnea with exertion, he was seen here 5 days ago for the same, work-up showed anemia for unknown reason, he had a negative Hemoccult, he was placed on Nexium and iron and advised to follow-up. He states he does not have a PCP, he was going to call the referral he was given today but he lost track of time and then developed this chest discomfort and returns to the emergency department. States he has also been having swelling in both of his ankles for the last couple days and that is new. He denies any bright red blood per rectum or bleeding from anywhere, but he has been having dark stools but chalked this up to a cleanse that he has been doing which involve eating a lot of blueberries, his stool was charcoal colored when he was here 5 days ago and had a negative Hemoccult, he states it is less black now. Has seen no blood, and no nausea/vomiting/hematemesis or bleeding from anywhere else. Does not take any antiplatelet or anticoagulant medications. Patient has a remote history of Hodgkin's lymphoma that he was successfully treated with chemotherapy, states he was in his 30s. [facility] Medical History Chronic neck pain DJD (degenerative joint disease) History of Hodgkin's lymphoma Obesity Home Medications ascorbate calcium (vitamin C) 500 mg tablet 500 mg PO DAILY 12/11/19 [History Last Taken Unknown] lactobacillus combination no.8 3 billion cell capsule (Adult Probiotic) 3,000 mmu cells PO DAILY 12/11/19 [History Last Taken Unknown] esomeprazole magnesium 20 mg capsule,delayed release (Nexium) 20 mg PO DAILY #60 caps 08/22/22 [Rx Last Taken Unknown] ferrous sulfate 325 mg (65 mg iron) tablet 325 mg PO BID #60 tabs 08/22/22 [Rx Last Taken Unknown] folic acid-vit B6-vit B12 2.5 mg-25 mg-1 mg tablet (WesTab One) 1 tab PO DAILY #30 tabs 08/22/22 [Rx Last Taken Unknown] Allergy/AdvReac Type Severity Reaction Status Date / Time No Known Allergies Allergy Verified 08/26/22 20:53 Family History Mother Cancer Brother Cancer Leukemia Father Hx of heart bypass surgery Surgical History S/P cervical spinal fusion S/P cholecystectomy Social History household members: spouse housing: house current occupational status: employed 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 Smoking Status: Never smoker alcohol intake: current what type of physical activity do you participate in: walking do you feel safe at home: Yes ROS ROS ED Constitutional Constitutional ED: Reports fatigue and malaise; Denies chills or fever(s) Eyes Eyes: Denies change in vision or diplopia ENT ENT ED: Denies rhinorrhea or sore throat Cardiovascular Cardiovascular: Reports chest pain, leg edema and orthopnea; Denies palpitations Respiratory/Chest Respiratory/Chest: Reports dyspnea, dyspnea on exertion and orthopnea; Denies cough Gastrointestinal Gastrointestinal: Reports as per HPI and melena; Denies abdominal pain, diarrhea, nausea or vomiting Genitourinary Genitourinary ED: Denies dysuria or hematuria Musculoskeletal Musculoskeletal: Denies back pain or neck pain Integumentary Denies abscess or rash Neurologic Neurologic: Denies headache(s), paresthesias or weakness Psychiatric Psychiatric: Denies anxiety or suicidal thoughts EXAM Physical Exam Const Vital Signs: 08/26/22 20:51 08/26/22 22:13 Temperature 98 F Temperature Source Temporal Pulse Rate 79 Respiratory Rate 16 Respiratory Effort Normal Non-Labored Blood Pressure 136/78 H Blood Pressure Mean 97 Pulse Ox 98 Oxygen Delivery Method Room Air Positive well nourished and well developed General Appearance ED: well developed and NAD HEENT Reports moist mucous membranes normocephalic and atraumatic Eyes PERRL and EOMs intact bilaterally Neck full ROM and supple Resp normal respiratory effort and clear to auscultation bilaterally Cardio regular rate, regular rhythm and no murmurs Rate: Negative for tachycardic GI non-tender and non-distended Auscultation: normoactive bowel sounds Palpation: soft Back/Spine no CVA tenderness General Back: other FROM Extremity normal to inspection General Extremety ED: Yes edema; Negative for pulses abnormal or tenderness General Extremity: edema bilateral lower extremity Details: mild (symmetric, ankles); Negative for pulses abnormal Neuro oriented x3, CN's II-XII intact bilaterally and no sensory deficits noted Sensorium / Orientation: awake and alert Motor Exam: strength 5/5 throughout Psych mental status grossly normal Skin no rashes or lesions noted and no wounds MDM MDM MDM Narrative Medical decision making narrative: And performed cardiac work-up, EKG, chest x-ray, labs were obtained but since he has some leg edema and unexplained dyspnea, also obtained a BNP. The main concern here is that his hemoglobin is 8.0 and 5 days ago was 9.0. I repeated his Hemoccult, it is negative. I reviewed prior ER visit, where he had a Hemoccult that was done that was negative, he was placed on Nexium and iron. His MCV is still a little elevated, but the rest of his indices are essentially normal. We do have the ability to perform a haptoglobin at this hospital but not stat. Unknown etiology of his anemia right now. His BNP is only 114, although that is slightly elevated it does not indicate acute decompensated congestive heart failure, this chest x-ray 2 views my interpretation is negative for any pulmonary edema, radiology in agreement that it is basically normal- appearing. The mediastinum does not appear wide to suggest mediastinal lymphadenopathy. His EKG shows a bifascicular block and is otherwise unchanged, nothing acute. 2 sequential troponins 2 hours apart negative. On reevaluation without treatment of anything in particular his chest pressure and dyspnea are completely resolved. He and his state that he has been having some issues with swallowing lately, but it was a couple weeks ago and ever since he has been eating normally without any difficulty at all; this is of unknown significance, he was placed on Nexium because of the symptoms when he was seen by my colleague 5 days ago. Patient is here late on a Monday night, I am concerned about his progressive anemia, but he does not have any evidence of endorgan damage right now, his symptoms are not dangerous, just basically fatigue and dyspnea on exertion, he has been having no angina when he exerts himself, and I do not think his chest discomfort tonight is angina given the negative work-up. For these reasons I do not think he needs a blood transfusion right now, and I see no obvious medical reason to admit him. I discussed all this with [employer] INSTRUCTOR Gordo on-call for oncology. She agrees that it would be reasonable to see him after the weekend and get some other testing going that she would follow-up on, or to admit the patient; I offered this, but the patient declines and really prefers to go home and follow-up, knowing that he can always come back if he gets worse. We discussed all these details at length, and he is comfortable with that plan. We discussed multiple other tests to add on, which will be done prior to the patient's discharge. History & Record Review Additional record(s) reviewed:: Prior ED visit and Prior labs Lab Data Attestation: I reviewed the patient's lab results. Labs: Laboratory Results - last 24 hr 08/26/22 08/26/22 08/26/22 22:10 22:10 22:10 WBC 5.4 RBC 2.60 L Hgb 8.0 L Hct 25.6 L MCV 98.5 H MCH 30.8 MCHC 31.3 L RDW Std Deviation 54.2 H RDW Coeff of Carmen 17.4 H Plt Count 229 MPV 10.8 Immature Gran % (Auto) 1.100 H Neut % (Auto) 67.6 Lymph % (Auto) 18.7 L [place] % (Auto) 8.7 Eos % (Auto) 3.3 Baso % (Auto) 0.6 Absolute Neuts (auto) 3.7 Absolute Lymphs (auto) 1.01 Nucleated RBC % 0 Sodium 141 Potassium 3.8 Chloride 108 H Carbon Dioxide 25.0 Anion Gap 8 BUN 16 Creatinine 1.00 Estim Creat Clear Calc 77.60 Est GFR (MDRD) Af Amer 96 Est GFR (MDRD) Non-Af 79 BUN/Creatinine Ratio 16.1 Glucose 108 H Calcium 8.4 L Troponin I High Sens 10 B-Natriuretic Peptide 114.0 H Blood Type Antibody Screen 08/26/22 08/27/22 22:10 00:20 WBC RBC Hgb Hct MCV MCH MCHC RDW Std Deviation RDW Coeff of Carmen Plt Count MPV Immature Gran % (Auto) Neut % (Auto) Lymph % (Auto) [place] % (Auto) Eos % (Auto) Baso % (Auto) Absolute Neuts (auto) Absolute Lymphs (auto) Nucleated RBC % Sodium Potassium Chloride Carbon Dioxide Anion Gap BUN Creatinine Estim Creat Clear Calc Est GFR (MDRD) Af Amer Est GFR (MDRD) Non-Af BUN/Creatinine Ratio Glucose Calcium Troponin I High Sens 11 B-Natriuretic Peptide Blood Type O NEGATIVE Antibody Screen NEGATIVE Radiography Diagnostic Testing: Clinical Impression(s) from Imaging Studies Chest X-Ray 08/26/22 22:20 IMPRESSION: No acute cardiopulmonary disease. 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 Discharge Plan Triage Chief Complaint: Shortness of Breath ED Provider: Rodo Alfaro Dx/Rx/DC Orders Clinical Impression: Chest pain, non-cardiac, Exertional dyspnea, Anemia Instructions: Anemia Prescriptions: No Action ascorbate calcium (vitamin C) 500 mg tablet 500 mg PO DAILY Adult Probiotic 3 billion cell capsule 3,000 mmu cells PO DAILY Rx Instructions: administer with a meal esomeprazole magnesium [Nexium] 20 mg capsule,delayed release(DR/EC) 20 mg PO DAILY Qty: 60 0RF ferrous sulfate 325 mg (65 mg iron) tablet 325 mg PO BID Qty: 60 0RF Rx Instructions: Start once a day and then increase to twice a day after about 1 to 2 weeks. WesTab One 2.5-25-1 mg tablet 1 tab PO DAILY Qty: 30 0RF Primary Care Provider: Care Physician,No Primary Referrals: Care Physician,No Primary [Primary Care Provider] - Patria Caro NP, [employer] [Med Staff - Adv Practice Prof] - As soon as possible (Expect a call from the office Monday around 8:30 for more instructions regarding follow-up) Disposition Disposition: Home, Self Care
[2022-08-27 02:10] LABS: Ferritin 104 ng/mL (26-388)
[2022-08-27 02:17] LABS: AST(SGOT) 24 U/L (15-37); Alanine Aminotransfer ALT/SGPT 32 U/L (16-61); Albumin, Serum 3.2 g/dL (3.2-5.0); Alkaline Phosphatase 64 U/L (45-117); Bilirubin, Direct 0.09 mg/dL (0.00-0.30); Globulin 2.9 g/dL (2.2-4.2); LDH 169 U/L (87-241); Protein, Total 6.1 g/dL (6.4-8.2)
[2022-08-27 02:33] LABS: Iron 43 ug/dL (65-175); Iron Binding Capacity,Total 277 ug/dL (250-450); PERCENT IRON SATURATION 15.5 % (15.0-55.0); Thyroid Stim Hormone (TSH) 6.68 uIU/mL (0.358-3.74)
[2022-08-28 08:08] LABS: Haptoglobin 153 mg/dL (32-363)
[2022-08-30 08:59] LABS: Vitamin B12 459 pg/mL (211-911)
[2022-08-31 15:08] LABS: Albumin 3.6 g/dL (2.9-4.4); Alpha-1-Globulins 0.3 g/dL (0.0-0.4); Alpha-2-Globulins 0.7 g/dL (0.4-1.0); Gamma Globulin 0.7 g/dL (0.4-1.8); Immunoglobulin A 103 mg/dL (61-437); Immunoglobulin G 525 mg/dL (603-1613); Immunoglobulin M 239 mg/dL (20-172); PROEL- TOTAL PROTEIN 6.1 g/dL (6.0-8.5)
== END 2022-08-27 02:02 | disposition home or self-care (01) ==
PROVIDERS: Emergency Provider Emergency Medicine; Visit Provider Emergency Medicine
DX: R07.89 Other chest pain (principal); D64.9 Anemia, unspecified; R06.00 Dyspnea, unspecified; Z90.49 Acquired absence of other specified parts of digestive tract
CPT/HCPCS: 71046; 80048; 80076; 82274; 82607; 82728; 82746; 82784; 83010; 83540; 83550; 83615; 83880; 83883; 84165; 84443; 84484; 85025; 86334; 86850; 86880; 86900; 86901; 93005; 99283; A4216